=== PATIENT | female | born 1980 | race Hispanic/Latino ===

== ENCOUNTER 2018-09-27 13:38 | Emergency (ER) | payer OTHER | END 2018-09-27 15:14 | disposition home or self-care (01) | LOC: EDH 13:38 | DX: S86.912A Strain of unspecified muscle(s) and tendon(s) at lower leg level, left leg, initial encounter (principal); W18.39XA Other fall on same level, initial encounter; Y93.89 Activity, other specified; Y92.89 Other specified places as the place of occurrence of the external cause; Y99.8 Other external cause status | CPT/HCPCS: 73590 ==

== ENCOUNTER 2019-07-02 12:26 | Emergency (ER) | payer OTHER ==
[2019-07-02] MEDS ORDERED: NAPROXEN 500 MG TABLET ONE (13:50)
[2019-07-02] MEDS ORDERED: METOCLOPRAMIDE 10 MG TABLET ONE (13:50)
== END 2019-07-02 15:02 | disposition home or self-care (01) ==
LOC: EDH 12:26
DX: G44.209 Tension-type headache, unspecified, not intractable (principal)

== ENCOUNTER 2021-04-20 15:48 | Emergency (ER) | payer OTHER ==
[~2021-04-20] VITALS: Ht 152.4 cm; Wt 90.7 kg
[2021-04-20] MEDS ORDERED: ONDANSETRON 4MG INJ IVP ONE (16:30)
[2021-04-20] MEDS ORDERED: FAMOTIDINE 20MG TAB PO ONE (16:30)
[2021-04-20] MEDS ORDERED: KETOROLAC 30MG VIAL (30MG/ML) IVP ONE (16:30)
[2021-04-20] MEDS ORDERED: ACETAMINOPHEN 500 MG TABLET PO ONE (16:30)
[2021-04-20] MEDS ORDERED: CEFTRIAXONE 1G VIAL 2 GM in 0.9%NACL 100ML 100 ML IV ONE (16:30)
[2021-04-20] MEDS ORDERED: 0.9%NACL 1000ML 1,000 ML IV ONE ×3 (16:30→18:00)
[2021-04-20 16:57] LABS: BASOPHILS % (AUTO) 0.1 % (0.0-5.0); EOSINOPHILS % (AUTO) 0.2 % (0.0-8.0); HEMATOCRIT 35.6 % (36-48); MEAN CORPUSCULAR HEMOGLOBIN 28.3 pg (27.0-33.0); MEAN CORPUSCULAR HGB CONC 34.3 g/dL (32.0-36.0); MEAN CORPUSCULAR VOLUME 82.6 fL (79-99); MONOCYTES % (AUTO) 5.9 % (3.0-13.0); NEUTROPHILS % (AUTO) 85.2 % (40.0-77.0); PLATELET COUNT (AUTO) 189 K/uL (130-400); RED BLOOD CELL COUNT(AUTO) 4.31 MIL/uL (4.00-5.50); WHITE BLOOD COUNT (AUTO) 9.5 K/uL (4.8-10.8)
[2021-04-20] MEDS ORDERED: MORPHINE 2 MG SYG IVP ONE (17:00)
[2021-04-20] MEDS ORDERED: CEFTRIAXONE 2GM VIAL IVP ONE (17:00)
[2021-04-20 17:08] LABS: AMYLASE 28 U/L (25-115)
[2021-04-20 17:17] LABS: ALBUMIN 3.6 g/dL (3.5-5.0); BILIRUBIN,TOTAL 0.9 mg/dL (0.2-1.0); CREATININE 0.6 mg/dL (0.5-1.5); POTASSIUM 3.3 mmol/L (3.5-5.1); TOTAL PROTEIN, SERUM 6.9 g/dL (6.0-8.3)
[2021-04-20 17:19] LABS: LIPASE < 50 U/L (114-286)
[2021-04-20 17:36] LABS: APPEARANCE,URINE Turbid (CLEAR); BILIRUBIN,URINE Negative (NEGATIVE); COLOR,URINE Yellow (YELLOW); GLUCOSE, URINE (UA) Negative (NEGATIVE); KETONES,URINE Negative (NEGATIVE); LEUKOCYTE ESTERASE ,URINE Large (NEGATIVE); NITRATE,URINE Positive (NEGATIVE); OCCULT BLOOD,URINE Moderate (NEGATIVE); PROTEIN,URINE POS 1+ mg/dL (NEGATIVE)
[2021-04-20 18:02] LABS: BACTERIA,URINE Moderate /HPF (None Seen); MUCUS,URINE Few LPF (None Seen); SQUAMOUS EPITHELIAL CELL,UR 0-2 /HPF (0-2)
[2021-04-20 18:13] VITALS: BP 114/56
[2021-04-20] MEDS ORDERED: CIPR-278 PO (18:43)
[2021-04-20] MEDS ORDERED: ONDA4TAB4 PO (18:43)
[2021-04-20] MEDS ORDERED: IBUP-2088 PO (18:43)
== END 2021-04-20 18:54 | disposition home or self-care (01) ==
LOC: EDH 15:48
DX: N12 Tubulo-interstitial nephritis, not specified as acute or chronic (principal); R50.9 Fever, unspecified; Z79.899 Other long term (current) drug therapy
CPT/HCPCS: 36415; 80053; 81001; 82150; 83605; 83690; 85025; 87040 ×2; 87077 ×2; 87088; 87186 ×2; 96361; 96374; 96375; 99284; J0696; J1885; J2405; J7030

== ENCOUNTER 2021-12-26 22:32 | Emergency (ER) | payer OTHER ==
[~2021-12-26] VITALS: Ht 154.9 cm; Wt 88.5 kg
[~2021-12-26 22:32] MED LIST: CIPR-278 PO; IBUP-2088 PO; ONDA4TAB4 PO
[2021-12-27 00:52] LABS: APPEARANCE,URINE CLEAR (CLEAR); BILIRUBIN,URINE NEGATIVE (NEGATIVE); COLOR,URINE YELLOW (YELLOW); GLUCOSE, URINE (UA) NEGATIVE (NEGATIVE); KETONES,URINE NEGATIVE (NEGATIVE); LEUKOCYTE ESTERASE ,URINE TRACE (NEGATIVE); NITRATE,URINE NEGATIVE (NEGATIVE); OCCULT BLOOD,URINE SMALL (NEGATIVE); PROTEIN,URINE NEGATIVE (NEGATIVE); UROBILINOGEN,URINE 0.2 mg/dL (0.2-1.0)
[2021-12-27 00:57] LABS: BASOPHILS % (AUTO) 0.2 % (0.0-5.0); HCG,QUAL RESULT NEGATIVE (NEGATIVE); HEMATOCRIT 39.5 % (36-48); LYMPHOCYTES % (AUTO) 27.3 % (21.0-51.0); MEAN CORPUSCULAR HEMOGLOBIN 27.8 pg (27.0-33.0); MEAN CORPUSCULAR HGB CONC 34.4 g/dL (32.0-36.0); MEAN CORPUSCULAR VOLUME 80.8 fL (79-99); NEUTROPHILS % (AUTO) 66.1 % (40.0-77.0); PLATELET COUNT (AUTO) 267 K/uL (130-400); RED BLOOD CELL COUNT(AUTO) 4.89 MIL/uL (4.00-5.50); RED CELL DISTRIBUTION WIDTH 14.1 % (11.0-15.5); WHITE BLOOD COUNT (AUTO) 13.2 K/uL (4.8-10.8)
[2021-12-27 00:59] LABS: BACTERIA,URINE None Seen /HPF (None Seen); RBC,URINE 0-1 /HPF (0-1); SQUAMOUS EPITHELIAL CELL,UR Moderate /HPF (0-2)
[2021-12-27] MEDS ORDERED: KETOROLAC 15MG/ML VIAL (15MG/ML) IV ONE (01:00)
[2021-12-27 01:02] LABS: CREATININE 0.7 mg/dL (0.5-1.5); POTASSIUM 3.6 mmol/L (3.5-5.1)
[2021-12-27 01:06] LABS: ALBUMIN 4.1 g/dL (3.5-5.0); BILIRUBIN,TOTAL 0.5 mg/dL (0.2-1.0); TOTAL PROTEIN, SERUM 7.6 g/dL (6.0-8.3)
[2021-12-27] MEDS ORDERED: NAPR500T6 PO (03:28)
[2021-12-27] MEDS ORDERED: DOCU-116 PO (03:28)
[2021-12-27] MEDS ORDERED: LACTULOSE 20 GM/30 ML UDCUP PO ONE (03:30)
[2021-12-27 03:44] VITALS: BP 115/70
== END 2021-12-27 03:46 | disposition home or self-care (01) ==
LOC: EDH 22:32
DX: K59.00 Constipation, unspecified (principal); Z79.1 Long term (current) use of non-steroidal anti-inflammatories (NSAID)
CPT/HCPCS: 36415; 74176; 80053; 81001; 81025; 83690; 85025; 96374; 99284; J1885

== ENCOUNTER 2022-07-02 16:20 | Emergency (ER) | payer OTHER ==
[~2022-07-02] VITALS: Ht 154.9 cm; Wt 90.7 kg
[~2022-07-02 16:20] MED LIST changes: +DOCU-116 PO; +NAPR500T6 PO
[2022-07-02 17:06] LABS: BASOPHILS % (AUTO) 0.1 % (0.0-5.0); EOSINOPHILS % (AUTO) 0.5 % (0.0-8.0); HEMATOCRIT 32.2 % (36-48); LYMPHOCYTES % (AUTO) 13.8 % (21.0-51.0); MEAN CORPUSCULAR HEMOGLOBIN 26.5 pg (27.0-33.0); MEAN CORPUSCULAR HGB CONC 34.2 g/dL (32.0-36.0); MEAN CORPUSCULAR VOLUME 77.6 fL (79-99); MONOCYTES % (AUTO) 4.9 % (3.0-13.0); NEUTROPHILS % (AUTO) 80.3 % (40.0-77.0); PLATELET COUNT (AUTO) 306 K/uL (130-400); RED BLOOD CELL COUNT(AUTO) 4.15 MIL/uL (4.00-5.50); RED CELL DISTRIBUTION WIDTH 13.1 % (11.0-15.5); WHITE BLOOD COUNT (AUTO) 14.7 K/uL (4.8-10.8)
[2022-07-02 17:15] LABS: APPEARANCE,URINE CLEAR (CLEAR); BILIRUBIN,URINE NEGATIVE (NEGATIVE); COLOR,URINE LIGHT-YELLOW (YELLOW); GLUCOSE, URINE (UA) NEGATIVE (NEGATIVE); HCG,QUALITATIVE URINE NEGATIVE (NEGATIVE); KETONES,URINE NEGATIVE (NEGATIVE); LEUKOCYTE ESTERASE ,URINE NEGATIVE Leu/uL (NEGATIVE); NITRATE,URINE NEGATIVE (NEGATIVE); OCCULT BLOOD,URINE SMALL (NEGATIVE); PROTEIN,URINE NEGATIVE (NEGATIVE); UROBILINOGEN,URINE 0.2 mg/dL (0.2-1.0)
[2022-07-02 17:20] LABS: WBC,URINE 0-1 /HPF (0-1)
[2022-07-02 17:22] LABS: CREATININE 0.6 mg/dL (0.5-1.5); POTASSIUM 3.3 mmol/L (3.5-5.1)
[2022-07-02 17:27] LABS: ALBUMIN 3.5 g/dL (3.5-5.0); TOTAL PROTEIN, SERUM 7.3 g/dL (6.0-8.3)
[2022-07-02] MEDS ORDERED: ACETAMINOPHEN 500 MG TABLET PO ONE (20:00)
[2022-07-02] MEDS ORDERED: 0.9%NACL 1000ML 1,000 ML IV SCH (20:30)
[2022-07-02] MEDS ORDERED: 0.9%NACL 1000ML 1,000 ML IV ONE (21:00)
[2022-07-02] MEDS ORDERED: ZOSYN 3.375GM +NS 50ML IV ONE (21:00)
[2022-07-02 21:16] LABS: ABG BASE EXCESS 0.9 mmol/L (-2.0-3.0); ABG HCO3 24.7 mmol/L (21.0-28.0); ABG OXYGEN SATURATION 96.2 % (95.0-99.0); ABG PCO2 36 mmHg (32-45)
[2022-07-02] MEDS ORDERED: AMOX1TAB16 PO (23:56)
[2022-07-03 00:04] VITALS: BP 126/61
== END 2022-07-03 00:41 | disposition home or self-care (01) ==
LOC: EDH 16:20
DX: U07.1 COVID-19 (principal)
CPT/HCPCS: 99285; 96365; 87635; 82947; 82435; 84132; 84295; 80053; 82803; 85025; 85651; 85018; 87040 ×2; 87804 ×2; 83605 ×2; 86140; 81001; 81025; 36415; 36600; 84145; C9803; J7030; J2543

== ENCOUNTER 2022-08-18 17:23 | Emergency (ER) | payer OTHER ==
[~2022-08-18] VITALS: Ht 160 cm; Wt 90.7 kg
[~2022-08-18 17:23] MED LIST changes: +AMOX1TAB16 PO
[2022-08-18] MEDS ORDERED: HYDROMORPHONE 1 MG INJ IVP ONE (19:00)
[2022-08-18] MEDS ORDERED: 0.9%NACL 1000ML 1,000 ML IV ONE ×2 (19:00→20:30)
[2022-08-18] MEDS ORDERED: ONDANSETRON 4MG INJ IVP ONE ×2 (19:00→21:00)
[2022-08-18 19:25] LABS: BASOPHILS % (AUTO) 0.2 % (0.0-5.0); EOSINOPHILS % (AUTO) 0.6 % (0.0-8.0); HEMATOCRIT 37.7 % (36-48); LYMPHOCYTES % (AUTO) 11.6 % (21.0-51.0); MEAN CORPUSCULAR HEMOGLOBIN 26.8 pg (27.0-33.0); MEAN CORPUSCULAR VOLUME 78.9 fL (79-99); MONOCYTES % (AUTO) 0.5 % (3.0-13.0); NEUTROPHILS % (AUTO) 70.8 % (40.0-77.0); PLATELET COUNT (AUTO) 157 K/uL (130-400); RED BLOOD CELL COUNT(AUTO) 4.78 MIL/uL (4.00-5.50); RED CELL DISTRIBUTION WIDTH 13.6 % (11.0-15.5); WHITE BLOOD COUNT (AUTO) 16.2 K/uL (4.8-10.8)
[2022-08-18 19:37] LABS: CREATININE 0.6 mg/dL (0.5-1.5); POTASSIUM 3.5 mmol/L (3.5-5.1)
[2022-08-18 19:42] LABS: ALBUMIN 3.7 g/dL (3.5-5.0); TOTAL PROTEIN, SERUM 6.6 g/dL (6.0-8.3)
[2022-08-18] MEDS ORDERED: PROCHLORPERAZINE 10MG/2ML INJ IV ONE (21:00)
[2022-08-18] MEDS ORDERED: DOCU-116 PO (21:20)
[2022-08-18] MEDS ORDERED: ACET-2079 PO (21:20)
[2022-08-18] MEDS ORDERED: COMP10 PO (21:20)
[2022-08-18 22:09] LABS: APPEARANCE,URINE CLEAR (CLEAR); BILIRUBIN,URINE NEGATIVE (NEGATIVE); COLOR,URINE LIGHT-YELLOW (YELLOW); GLUCOSE, URINE (UA) NEGATIVE (NEGATIVE); KETONES,URINE 5 mg/dL (NEGATIVE); LEUKOCYTE ESTERASE ,URINE NEGATIVE Leu/uL (NEGATIVE); NITRATE,URINE NEGATIVE (NEGATIVE); OCCULT BLOOD,URINE MODERATE (NEGATIVE); PH,URINE 6.5 (5.0-8.0); PROTEIN,URINE NEGATIVE (NEGATIVE); UROBILINOGEN,URINE 0.2 mg/dL (0.2-1.0)
[2022-08-18 22:12] LABS: MUCUS,URINE RARE LPF (None Seen); SQUAMOUS EPITHELIAL CELL,UR RARE /HPF (0-2)
[2022-08-18] MEDS ORDERED: CEPH500B PO (22:15)
[2022-08-18 22:27] VITALS: BP 145/70
== END 2022-08-18 22:35 | disposition home or self-care (01) ==
LOC: EDH 17:23
DX: D72.829 Elevated white blood cell count, unspecified (principal); R11.2 Nausea with vomiting, unspecified; Z90.13 Acquired absence of bilateral breasts and nipples; Z79.1 Long term (current) use of non-steroidal anti-inflammatories (NSAID); Z79.2 Long term (current) use of antibiotics; Z79.899 Other long term (current) drug therapy; Z85.3 Personal history of malignant neoplasm of breast
CPT/HCPCS: 99285; 74176; 96374; 71045; 96361; 96375; 80053; 83690; 85025; 87088; 83605; 81001; 36415; 96376; J1170; J7030 ×2; J0780; J2405 ×2

== ENCOUNTER 2022-09-28 19:45 | Emergency (ER) | payer OTHER ==
[~2022-09-28] VITALS: Ht 154.9 cm; Wt 90.7 kg
[~2022-09-28 19:45] MED LIST changes: +ACET-2079 PO; +CEPH500B PO; +COMP10 PO
[2022-09-28] MEDS ORDERED: MORPHINE 4 MG SYG IM ONE (22:30)
[2022-09-28] MEDS ORDERED: MORPHINE 4 MG SYG IVP PRN (22:30)
[2022-09-28 22:37] VITALS: BP 134/62
== END 2022-09-28 22:42 | disposition home or self-care (01) ==
LOC: EDH 19:45
DX: R07.81 Pleurodynia (principal); M25.512 Pain in left shoulder; M25.562 Pain in left knee; E11.9 Type 2 diabetes mellitus without complications; Z79.1 Long term (current) use of non-steroidal anti-inflammatories (NSAID); Z79.2 Long term (current) use of antibiotics; Z79.899 Other long term (current) drug therapy; W10.9XXA Fall (on) (from) unspecified stairs and steps, initial encounter; Y93.89 Activity, other specified; Y92.89 Other specified places as the place of occurrence of the external cause; Y99.8 Other external cause status
CPT/HCPCS: 99284; 73090; 73060; 73560; 71100; 73030; 96372; J2270

== ENCOUNTER 2023-01-04 17:58 | Emergency (ER) | payer OTHER ==
[~2023-01-04] VITALS: Ht 154.9 cm; Wt 90.7 kg
[2023-01-04 18:04] VITALS: BP 116/71
[2023-01-04 18:28] LABS: APPEARANCE,URINE CLEAR (CLEAR); BILIRUBIN,URINE NEGATIVE (NEGATIVE); COLOR,URINE LIGHT-YELLOW (YELLOW); GLUCOSE, URINE (UA) 50 mg/dL (NEGATIVE); KETONES,URINE NEGATIVE (NEGATIVE); LEUKOCYTE ESTERASE ,URINE 25 Leu/uL (NEGATIVE); NITRATE,URINE NEGATIVE (NEGATIVE); OCCULT BLOOD,URINE SMALL (NEGATIVE); PROTEIN,URINE NEGATIVE (NEGATIVE); UROBILINOGEN,URINE 0.2 mg/dL (0.2-1.0)
[2023-01-04 18:39] LABS: BACTERIA,URINE RARE /HPF (None Seen); RBC,URINE 0-1 /HPF (0-1); SQUAMOUS EPITHELIAL CELL,UR FEW /HPF (0-2); YEAST,URINE BUDDING RARE /HPF (None Seen)
[2023-01-04 18:48] LABS: HCG,QUALITATIVE URINE NEGATIVE (NEGATIVE)
[2023-01-04] MEDS ORDERED: ACETAMINOPHEN 500 MG TABLET ONE (19:38)
[2023-01-04 19:50] LABS: BASOPHILS % (AUTO) 0.3 % (0.0-5.0); EOSINOPHILS % (AUTO) 2.7 % (0.0-8.0); HEMATOCRIT 38.3 % (36-48); LYMPHOCYTES % (AUTO) 26.4 % (21.0-51.0); MEAN CORPUSCULAR HEMOGLOBIN 27.1 pg (27.0-33.0); MEAN CORPUSCULAR HGB CONC 33.4 g/dL (32.0-36.0); MONOCYTES % (AUTO) 4.8 % (3.0-13.0); NEUTROPHILS % (AUTO) 65.5 % (40.0-77.0); PLATELET COUNT (AUTO) 207 K/uL (130-400); RED BLOOD CELL COUNT(AUTO) 4.73 MIL/uL (4.00-5.50); RED CELL DISTRIBUTION WIDTH 13.8 % (11.0-15.5); WHITE BLOOD COUNT (AUTO) 8.8 K/uL (4.8-10.8)
[2023-01-04 20:00] LABS: INR 0.93 (0.85-1.15); PROTHROMBIN TIME 10.3 SEC (9.6-11.6)
[2023-01-04] MEDS ORDERED: ACETAMINOPHEN 500 MG TABLET PO SCH (20:00)
[2023-01-04] MEDS ORDERED: ACETAMINOPHEN 500 MG TABLET PO ONE (20:00)
[2023-01-04 20:04] LABS: CREATININE 0.6 mg/dL (0.5-1.5)
[2023-01-04 20:13] LABS: ALBUMIN 3.6 g/dL (3.5-5.0); MAGNESIUM 2.2 mg/dL (1.80-2.40); TOTAL PROTEIN, SERUM 7.1 g/dL (6.0-8.3)
[2023-01-04 20:17] LABS: B-TYPE NATRIURETIC PEPTIDE < 5 pg/mL (0-100)
[2023-01-04] MEDS ORDERED: 0.9%NACL 1000ML 1,000 ML IV ONE (20:30)
[2023-01-04] MEDS ORDERED: CEFTRIAXONE 1G VIAL IVPB ONE (21:30)
== END 2023-01-04 23:39 | disposition home or self-care (01) ==
LOC: EDH 17:58
DX: N39.0 Urinary tract infection, site not specified (principal); K80.20 Calculus of gallbladder without cholecystitis without obstruction; R07.89 Other chest pain; E11.9 Type 2 diabetes mellitus without complications; Z20.822 Contact with and (suspected) exposure to COVID-19; Z79.899 Other long term (current) drug therapy; Z98.890 Other specified postprocedural states
CPT/HCPCS: 99285; 96374; 76705; 71045; 87635; 96361; 83735; 84484; 80053; 83880; 85025; 85378; 85610; 87088; 87880; 87804 ×2; 83605; 81001; 81025; 36415; 93005; C9803; J7030; J0696

== ENCOUNTER 2023-03-10 15:27 | Emergency (ER) | payer OTHER ==
[~2023-03-10] VITALS: Ht 152.4 cm; Wt 90.7 kg
[2023-03-10 15:32] VITALS: BP 152/91; PULSE 80; RESP 18; O2SAT 98
[2023-03-10] MEDS ORDERED: KETOROLAC 30MG VIAL (30MG/ML) IM ONE (16:30)
[2023-03-10] MEDS ORDERED: PREG50 PO (16:38)
== END 2023-03-10 17:03 | disposition home or self-care (01) ==
LOC: EDH 15:27
DX: M79.2 Neuralgia and neuritis, unspecified (principal); E11.9 Type 2 diabetes mellitus without complications; Z79.899 Other long term (current) drug therapy; Z98.890 Other specified postprocedural states; Z85.3 Personal history of malignant neoplasm of breast
CPT/HCPCS: 99284; 96372; J1885

== ENCOUNTER 2023-08-06 20:25 | Emergency (ER) | payer OTHER ==
[~2023-08-06] VITALS: Ht 152.4 cm; Wt 88.9 kg
[~2023-08-06 20:25] MED LIST changes: -COMP10 PO; +PREG50 PO; +PROC-30 PO
[2023-08-06 21:11] LABS: APPEARANCE,URINE CLEAR (CLEAR); BILIRUBIN,URINE NEGATIVE (NEGATIVE); COLOR,URINE COLORLESS (YELLOW); GLUCOSE, URINE (UA) NEGATIVE (NEGATIVE); KETONES,URINE NEGATIVE (NEGATIVE); LEUKOCYTE ESTERASE ,URINE 75 Leu/uL (NEGATIVE); NITRATE,URINE NEGATIVE (NEGATIVE); OCCULT BLOOD,URINE NEGATIVE (NEGATIVE); PH,URINE 6.5 (5.0-8.0); PROTEIN,URINE NEGATIVE (NEGATIVE); UROBILINOGEN,URINE 0.2 mg/dL (0.2-1.0)
[2023-08-06 21:13] LABS: ADD UA MICROSCOPIC YES
[2023-08-06 21:20] LABS: NON-SQUAMOUS EPITHELIAL CELL <1 /HPF (0-2); SQUAMOUS EPITHELIAL CELL,UR RARE /HPF (0-2)
[2023-08-06 21:22] LABS: BASOPHILS # (AUTO) 0.03 K/uL (0.00-0.20); BASOPHILS % (AUTO) 0.3 % (0.0-5.0); EOSINOPHILS # (AUTO) 0.19 K/uL (0.00-0.70); EOSINOPHILS % (AUTO) 1.7 % (0.0-8.0); IMMATURE GRANULOCYTE ABSOLUTE 0.02 K/uL (0-1); LYMPHOCYTES # (AUTO) 3.5 K/uL (1.0-4.8); LYMPHOCYTES % (AUTO) 31.4 % (21.0-51.0); MEAN CORPUSCULAR HGB CONC 33.9 g/dL (32.0-36.0); MEAN CORPUSCULAR VOLUME 85.5 fL (79-99); MONOCYTES # (AUTO) 0.5 K/uL (0.1-1.0); MONOCYTES % (AUTO) 4.2 % (3.0-13.0); NEUTROPHILS # (AUTO) 6.9 K/uL (1.8-7.7); NEUTROPHILS % (AUTO) 62.2 % (40.0-77.0); PLATELET COUNT (AUTO) 220 K/uL (130-400); RED BLOOD CELL COUNT(AUTO) 4.21 MIL/uL (4.00-5.50); RED CELL DISTRIBUTION WIDTH 12.7 % (11.0-15.5)
[2023-08-06 21:26] LABS: CREATININE 0.6 mg/dL (0.5-1.5); POTASSIUM 3.7 mmol/L (3.5-5.1)
[2023-08-06 21:30] LABS: ALBUMIN 3.5 g/dL (3.5-5.0); BILIRUBIN,TOTAL 0.3 mg/dL (0.2-1.0); TOTAL PROTEIN, SERUM 6.8 g/dL (6.0-8.3)
[2023-08-06] MEDS ORDERED: ONDANSETRON 4MG INJ IVP ONE (21:30)
[2023-08-06] MEDS ORDERED: 0.9%NACL 1000ML 1,000 ML IV ONE (21:30)
[2023-08-06] MEDS: LIDOCAINE HCL 2% VISCOUS 15 ML UDCUP PO ONE (22:25)
[2023-08-06] MEDS: MAG/ALUM/SIMETH 30 ML UDCUP PO ONE (22:25)
[2023-08-06 22:28] VITALS: BP 110/76; PULSE 72; RESP 16; O2SAT 99
== END 2023-08-06 22:47 | disposition home or self-care (01) ==
LOC: EDH 20:25
DX: K29.70 Gastritis, unspecified, without bleeding (principal); E11.9 Type 2 diabetes mellitus without complications; Z79.899 Other long term (current) drug therapy; Z98.890 Other specified postprocedural states
CPT/HCPCS: 36415; 80053; 81001; 83690; 85025; 87088

== ENCOUNTER 2023-12-06 20:09 | Emergency (ER) | payer OTHER ==
[~2023-12-06] VITALS: Ht 154.9 cm; Wt 90.3 kg
[2023-12-06] MEDS: IBUPROFEN 800 MG TAB PO STA (21:26)
[2023-12-06 21:31] LABS: BASOPHILS # (AUTO) 0.02 K/uL (0.00-0.20); BASOPHILS % (AUTO) 0.2 % (0.0-5.0); EOSINOPHILS # (AUTO) 0.35 K/uL (0.00-0.70); EOSINOPHILS % (AUTO) 3.3 % (0.0-8.0); HEMATOCRIT 36.9 % (36-48); IMMATURE GRANULOCYTE ABSOLUTE 0.03 K/uL (0-1); LYMPHOCYTES # (AUTO) 3.3 K/uL (1.0-4.8); MEAN CORPUSCULAR HEMOGLOBIN 27.8 pg (27.0-33.0); MEAN CORPUSCULAR HGB CONC 33.9 g/dL (32.0-36.0); MONOCYTES # (AUTO) 0.5 K/uL (0.1-1.0); MONOCYTES % (AUTO) 4.7 % (3.0-13.0); NEUTROPHILS # (AUTO) 6.4 K/uL (1.8-7.7); NEUTROPHILS % (AUTO) 60.5 % (40.0-77.0); PLATELET COUNT (AUTO) 185 K/uL (130-400); RED CELL DISTRIBUTION WIDTH 13.7 % (11.0-15.5); WHITE BLOOD COUNT (AUTO) 10.6 K/uL (4.8-10.8)
[2023-12-06 21:39] LABS: CREATININE 0.5 mg/dL (0.5-1.0); POTASSIUM 3.9 mmol/L (3.5-5.1)
[2023-12-06] MEDS: ONDANSETRON ODT 4MG TAB SL STA (23:03)
[2023-12-06] MEDS: MORPHINE 2 MG SYG IM STA (23:06)
[2023-12-07 00:10] VITALS: BP 108/74; PULSE 72; RESP 18; O2SAT 98
== END 2023-12-07 00:15 | disposition home or self-care (01) ==
LOC: EDH 20:09
DX: G89.18 Other acute postprocedural pain (principal); R07.89 Other chest pain; M79.621 Pain in right upper arm; E11.9 Type 2 diabetes mellitus without complications; Z79.899 Other long term (current) drug therapy; Z98.890 Other specified postprocedural states; Z85.3 Personal history of malignant neoplasm of breast
CPT/HCPCS: 99285; 93971; 80048; 85025; 85378; 36415; 96372; J2270